=== PATIENT | female | born 1940 | race Caucasian/White ===

== ENCOUNTER 2023-10-28 11:46 | Emergency (ER) | payer OTHER ==
[~2023-10-28] VITALS: Ht 162.6 cm; Wt 98.6 kg
[2023-10-28 15:55] LABS: BASOPHILS % (AUTO) 0.4 % (0.0-2.0); EOSINOPHILS % (AUTO) 6.4 % (1.0-6.0); HEMATOCRIT 44.4 % (36-46); HEMOGLOBIN 14.7 g/dL (12.0-16.0); LYMPHOCYTES # (AUTO) 1.2 K/uL (1.0-4.8); MEAN CORPUSCULAR HEMOGLOBIN 30.7 pg (26.0-34.0); MEAN CORPUSCULAR HGB CONC 33.1 G/dL (31.0-37.0); MEAN CORPUSCULAR VOLUME 93 fL (80-100); MONOCYTES # (AUTO) 0.8 K/uL (0.1-1.0); MONOCYTES % (AUTO) 10.7 % (2.0-9.0); NEUTROPHILS # (AUTO) 5.3 K/uL (1.8-7.7); NEUTROPHILS % (AUTO) 67.5 % (40.0-70.0); PLATELET COUNT (AUTO) 252 K/uL (150-450); RED BLOOD CELL COUNT(AUTO) 4.78 MIL/uL (4.00-5.20); RED CELL DISTRIBUTION WIDTH 14.5 % (11.5-14.5); WHITE BLOOD COUNT (AUTO) 7.8 K/uL (4.5-11.0)
[2023-10-28 16:04] LABS: CALCIUM, TOTAL 8.9 mg/dL (8.8-10.5); POTASSIUM 3.2 mmol/L (3.5-5.1)
[2023-10-28 16:11] LABS: ALBUMIN 2.9 g/dL (3.4-5.0); BILIRUBIN,TOTAL 0.4 mg/dL (0.1-1.0); C-REACTIVE PROTEIN QUANT 2.1 mg/dL (0.00-0.30); TOTAL PROTEIN, SERUM 7.9 g/dL (6.4-8.2)
[2023-10-28] MEDS ORDERED: IOHEXOL 300 MG/ML 100 ML VIAL ONE (16:26)
[2023-10-28] MEDS ORDERED: SODIUM CHLORIDE 0.9% 100 ML ONE (16:26)
[2023-10-28 16:31] LABS: ERYTHROCYTE SEDIMENTATION RATE 82 MM/HR (0-30)
[2023-10-28] MEDS: POTASSIUM CHLORIDE 20 MEQ ER TABLET PO ONE (19:09)
[2023-10-28] MEDS: CefTRIAXone 1 GM/DEXTROSE 50 ML IV ONE (19:16)
[2023-10-28 20:03] VITALS: TEMP 98.8
[2023-10-28] MEDS ORDERED: AMOX1TAB16 PO (20:03)
[2023-10-28 21:17] VITALS: BP 143/73; PULSE 86; RESP 18
== END 2023-10-29 00:22 | disposition home or self-care (01) ==
LOC: EMS 11:48
DX: K11.20 Sialoadenitis, unspecified (principal); M19.90 Unspecified osteoarthritis, unspecified site; I10 Essential (primary) hypertension
CPT/HCPCS: 99285; 96365; 70491; 80053; 85025; 85651; 86140; 87040; 36415; J0696; J7050; Q9967